=== PATIENT | male | born 1995 | race African-American/Black ===

== ENCOUNTER 2018-12-20 21:53 | Emergency (ER) | payer OTHER ==
[~2018-12-20] VITALS: Ht 175.3 cm; Wt 84.1 kg
[2018-12-21] MEDS ORDERED: NS 500 ML IV ONE (01:30)
[2018-12-21 01:54] VITALS: BP 118/72
== END 2018-12-21 02:10 | disposition home or self-care (01) ==
LOC: M ED 21:53
DX: K52.9 Noninfective gastroenteritis and colitis, unspecified (principal)

== ENCOUNTER 2020-05-15 14:48 | Inpatient (IN) | payer OTHER ==
[~2020-05-15] VITALS: Ht 177.8 cm; Wt 87.8 kg
[2020-05-15 15:33] LABS: BASO % 0.1 % (0.0-1.0); EOS # 0.2 10^3/uL (0.0-0.5); HEMATOCRIT 45.9 % (42.0-52.0); HEMOGLOBIN 15.2 g/dl (13.5-17.5); LYMPH # 1.7 10^3/uL (1.5-5.0); LYMPH % 23.6 % (24.0-44.0); MEAN CORPUSCULAR HEMOGLOBIN 28.1 pg (27.0-33.0); MEAN CORPUSCULAR HGB CONC 33.1 g/dl (32.0-36.5); MEAN CORPUSCULAR VOLUME 84.8 fl (80.0-96.0); MONO # 0.7 10^3/uL (0.0-0.8); MONO % 9.3 % (0.0-5.0); NEUTROPHILS # 4.7 10^3/uL (1.5-8.5); NEUTROPHILS % 64.6 % (36.0-66.0); PLATELET COUNT, AUTOMATED 284 10^3/uL (150-450); RED BLOOD COUNT 5.41 10^6/uL (4.30-6.10); WHITE BLOOD COUNT 7.3 10^3/uL (4.0-10.0)
[2020-05-15] MEDS ORDERED: ONDANSETRON 4MG/2ML VIAL IV ONE (16:00)
[2020-05-15] MEDS ORDERED: NS 1,000 ML IV ONE ×2 (16:00→19:00)
[2020-05-15 16:07] LABS: ALBUMIN 4.2 GM/DL (3.2-5.2); BILIRUBIN,DIRECT 0.2 MG/DL (0.0-0.2); BILIRUBIN,TOTAL 0.7 MG/DL (0.2-1.0)
[2020-05-15] MEDS: GASTROGRAFIN SOLUTION 30ML PO SCH ×2 (17:01→17:43)
[2020-05-15] MEDS ORDERED: ISOVUE-370 76% 100ML VIAL As Ordered ONE (17:40)
--- NOTE | 2020-05-15 19:09 | REPVR ---
PROCEDURE INFORMATION: Exam: CT Abdomen And Pelvis With Contrast Exam date and time: 05/15/2020 6:51 PM Age: 24 years old Clinical indication: Abdominal pain; Additional info: Abd pain with n/v/d and blood in vomit TECHNIQUE: Imaging protocol: Computed tomography of the abdomen and pelvis with intravenous contrast. Radiation optimization: All CT scans at this facility use at least one of these dose optimization techniques: automated exposure control; mA and/or kV adjustment per patient size (includes targeted exams where dose is matched to clinical indication); or iterative reconstruction. Contrast material: ISOVUE 370; Contrast volume: 100 ml; Contrast route: INTRAVENOUS (IV); Other contrast: Oral; COMPARISON: No relevant prior studies available. FINDINGS: Mediastinal space: Thickening of the wall of the distal esophagus. Clinical correlation to exclude reflux suggested. Liver: There is a diffuse decrease in hepatic parenchymal density, consistent with steatosis. Gallbladder and bile ducts: Normal. No calcified stones. No ductal dilation. Pancreas: Normal. No ductal dilation. Spleen: Normal. No splenomegaly. Adrenals: Normal. No mass. Kidneys and ureters: Normal. No hydronephrosis. Stomach and bowel: Boggy appearance of the left colon may be related to incomplete distention although colitis to be excluded clinically. Appendix: No evidence of appendicitis. Intraperitoneal space: Unremarkable. No free air. No significant fluid collection. Vasculature: Unremarkable. No abdominal aortic aneurysm. Lymph nodes: Unremarkable. No enlarged lymph nodes. Urinary bladder: Unremarkable as visualized. Reproductive: Unremarkable as visualized. Bones/joints: Unremarkable. No acute fracture. Soft tissues: Unremarkable. IMPRESSION: 1. There is a diffuse decrease in hepatic parenchymal density, consistent with steatosis. 2. Boggy appearance of the left colon may be related to incomplete distention although colitis to be excluded clinically. 3. Thickening of the wall of the distal esophagus. Clinical correlation to exclude reflux suggested. Electronically signed by: Bebo Mackey On 05/15/2020 19:09:06 PM
[2020-05-15 20:16] LABS: AMPHETAMINES LEVEL URINE NEGATIVE (NEGATIVE); BARBITURATES URINE NEGATIVE (NEGATIVE); BENZODIAZEPINES URINE NEGATIVE (NEGATIVE); CANNABINOIDS URINE POSITIVE (NEGATIVE); COCAINE METABOLITE URINE NEGATIVE (NEGATIVE); METHADONE URINE NEGATIVE (NEGATIVE); OPIATES URINE NEGATIVE (NEGATIVE); PHENCYCLIDINE URINE NEGATIVE (NEGATIVE)
[2020-05-15] MEDS ORDERED: ACETAMINOPHEN TAB 650MG DOSE (2X325MG) PO PRN (20:45)
[2020-05-15] MEDS ORDERED: ONDANSETRON 4MG/2ML VIAL IV PRN (20:45)
--- NOTE | 2020-05-15 20:51 | HPEPDOC ---
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 He states that last Thursday he had a strenuous 4 hour long workout followed by excessive binge drinking over the weekend. Yesterday evening he went to bed feeling well but this morning awoke to go to PT and felt nauseous. He then had several episodes of emesis (mostly appearing like the food he ate last night) and continued to dry heave until there was some bright red blood in his vomitus. He estimates only about 10cc blood. At the time of my exam he states he feels better and no longer nauseous or vomiting. He did have one episode of diarrhea this morning. He denies any recent illnesses, no fevers/chills/SOB or weight loss. PAST MEDICAL HISTORY: 1. Tobacco abuse 2. Binge drinker (EtOH) PAST SURGICAL HISTORY: [place] teeth removal SOCIAL HISTORY: [place], working in [employer]. Lives at [place]. Former heavy smoker, reports smoking 3-4 cigarettes daily Reports binge drinking heavy liquor + beer on weekends Denies any illicit drug use including (but tox screen positive for cannabinoids) Does strenuous workouts 3-4 times/week, denies use of preworkout or workout supplements FAMILY HISTORY: Gout, Heart disease unspecified, HTN, DM2 ALLERGIES: Please see below. REVIEW OF SYSTEMS: Constitutional: No Weight Change, No Fever, No Chills, No Night Sweats, No Fatigue, No Malaise ENT/Mouth: No Hearing Changes, No Ear Pain, No Nasal Congestion, No Sinus Pain, No Hoarseness, No sore throat, No Rhinorrhea, No Swallowing Difficulty Eyes: No Eye Pain, No Swelling, No Redness, No Foreign Body, No Discharge, No Vision Changes Cardiovascular: No Chest Pain, No SOB, No PND, No Dyspnea on Exertion, No Orthopnea, No Claudication, No Edema, No Palpitations Respiratory: No Cough, No Wheezing, No Smoke Exposure, No Dyspnea Gastrointestinal: Reports nausea, vomiting, hematemesis, abdominal pain worse in the right upper quadrant Genitourinary: No Dysmenorrhea, No DUB, No Dyspareunia, No Dysuria Musculoskeletal: No Arthralgias, No Myalgias, No Joint Swelling, No Joint Stiffness, No Back Pain, No Neck Pain, No Injury History Skin: No Skin Lesions, No Pruritis, No Hair Changes, No Breast/Skin Changes, No Nipple Discharge Neuro: No Weakness, No Numbness, No Paresthesias, No Loss of Consciousness, No Syncope, No Dizziness, No Headache, No Coordination Changes, No Recent Falls Psych: No Anxiety/Panic, No Depression, No Insomnia, No Personality Changes, No Delusions Heme/Lymph: No Bruising, No Bleeding, No Transfusions History, No Lymphadenopathy Endocrine: No Polyuria, No Polydipsia, No Temperature Intolerance HOME MEDICATIONS: Please see below. VITAL SIGNS: see below GENERAL: alert and oriented, in no apparent distress, pleasant and conversant in full sentences. HEENT: PERRL, EOMI, Oral mucous membranes are moist without lesions. NECK: The patient has no noted JVD. No adenopathy is appreciated. No thyromegaly CHEST/LUNGS: Lungs are clear bilaterally without rhonchi, rales, or wheezes. There is no subcutaneous air appreciated. There is no tenderness to the chest wall. HEART:Regular rate and rhythm. No murmurs, rubs, or gallops are appreciated. Distal pulses are 2+. No carotid bruits appreciated. ABDOMEN: Soft, nondistended, slightly tender to palpation in the right upper quadrant. Liver appears normal size. Bowel sounds are positive. No organomegaly is appreciated. No masses are appreciated. There are no peritoneal signs. There is no [place] sign. EXTREMITIES: No peripheral edema. There is no focal long bone tenderness or deformity. SKIN: The patients skin is warm and dry, without rashes or lesions. PSYCHIATRIC: AAO x 3, normal mood/affect NEUROLOGIC: The patient has 5/5 strength to the upper and lower extremities bilaterally. Sensation is intact throughout. Deep tendon reflexes are 2+ in all four extremities. There are no deficits to the cranial nerves. LABORATORY DATA: See below. IMAGING: CT A/P with contrast: IMPRESSION: 1. There is a diffuse decrease in hepatic parenchymal density, consistent with steatosis. 2. Boggy appearance of the left colon may be related to incomplete distention although colitis to be excluded clinically. 3. Thickening of the wall of the distal esophagus. Clinical correlation to exclude reflux suggested. MICROBIOLOGY: Please see below. 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 PLAN: 1. Elevated CK concerning for rhabdomyolysis: The patient has a history of recent strenuous workouts -CK found to be 30,350 -We will begin aggressive fluid hydration IV NS 200 mL per hour -Will trend CPK Q6H -No evidence of renal dysfunction at this time. BUN/CR normal. -UA positive for RBC -No obvious illicit drug use other than cannabinoids. Patient denies use of preworkout supplementation 2. Transaminitis: ddx acute alcoholic hepatitis vs viral hepatitis (although less likely given lack of infectious symptoms) -CT abd/pelvis concerning for acute fatty liver. -Patient does report recent heavy EtOH binge drinking -Ordered hepatitis panel -Will trend AST/ALT 3. Reported hematemesis: -Most likely 2/2 to esophageal tear (Boerhaave syndrome) from excessive straining from vomiting -CT abd/pelvis demonstrates thickened distal esophagus concerning for reflux -Patient will benefit from outpatient follow up regarding this matter -H/H stable and patient denies any recent bloody emesis in past several hours. DVT ppx: TEDs/SCDs Vital Signs Vital Signs Date Time Temp Pulse Resp B/P (MAP) Pulse Ox O2 Delivery O2 Flow Rate FiO2 05/15/20 16:03 05/15/20 14:48 98.6 64 17 98 Room Air Laboratory Data Labs 24H Laboratory Tests 2 05/15/20 15:18: Immature Granulocyte % (Auto) 0.4, Neutrophils (%) (Auto) 64.6, Lymphocytes (%) (Auto) 23.6L, Monocytes (%) (Auto) 9.3H, Eosinophils (%) (Auto) 2.0, Basophils (%) (Auto) 0.1, Neutrophils # (Auto) 4.7, Lymphocytes # (Auto) 1.7, Monocytes # (Auto) 0.7, Eosinophils # (Auto) 0.2, Basophils # (Auto) 0.0, Nucleated Red Blood Cells % (auto) 0.0, Total Bilirubin 0.7, Direct Bilirubin 0.2, Aspartate Amino Transf (AST/SGOT) 449H, Alanine Aminotransferase (ALT/SGPT) 162H, Alkaline Phosphatase 74, Total Creatine Kinase 30352D, Total Protein 8.0, Albumin 4.2, Albumin/Globulin Ratio 1.1, Lipase 76 05/15/20 15:53: POC Glucose (Misc Panel) 92, POC Sodium (Misc Panel) 141, POC Potassium (Misc Panel) 3.7, POC Chloride (Misc Panel) 100, POC Total CO2 (Misc Panel) 25.0, POC Blood Urea Nitrogen (Misc Panel 12, POC Ionized Calcium (Misc Panel) 4.9, POC Creatinine (Misc Panel) 0.9, POC Hematocrit (Misc Panel) 48.0 05/15/20 16:12: Urine Color YELLOW, Urine Appearance TURBIDH, Urine pH 7.0, Urine Specific [place] 1.026, Urine Protein 1+H, Urine Glucose (UA) NEGATIVE, Urine Ketones NEGATIVE, Urine Blood 1+H, Urine Nitrite NEGATIVE, Urine Bilirubin NEGATIVE, Urine Urobilinogen 2.0H, Urine Leukocyte Esterase 2+H, Urine WBC (Auto) 35H, Urine RBC (Auto) 30H, Urine Hyaline Casts (Auto) 0, Urine Bacteria (Auto) NEGATIVE, Urine Squamous Epithelial Cells 4, Urine Amorphous Sediment LARGEH, Urine Mucus (Auto) SMALL, Urine Sperm (Auto) 05/15/20 19:36: Urine Opiates Screen NEGATIVE, Urine Methadone Screen NEGATIVE, Urine Barbiturates Screen NEGATIVE, Urine Phencyclidine Screen NEGATIVE, Urine Amphetamines Screen NEGATIVE, Urine Benzodiazepines Screen NEGATIVE, Urine Cocaine Metabolite Screen NEGATIVE, Urine Cannabinoids Screen POSITIVEH CBC/BMP Laboratory Tests 05/15/20 15:18 Microbiology Microbiology 05/15/20 Urine Culture, Received Pending Home Medications No Active Prescriptions or Reported Meds Allergies Coded Allergies: No Known Allergies (Unverified , 12/20/18) A-FIB/CHADSVASC A-FIB History Current/History of A-Fib/PAF?: No GME ATTESTATION GME ATTESTATION My faculty preceptor for this patient encounter was physically present during the encounter and was fully available. All aspects of the patient interview, examination, medical decision making process, and medical care plan development were reviewed and approved by the faculty preceptor. The faculty preceptor is aware and concurs with the plan as stated in the body of this note and will attest to such by his/her cosignature. GARRISON GARCIA MD May 15, 2020 20:51
[2020-05-15 22:00] VITALS: BP 133/75
[2020-05-15] MEDS: NS 1,000 ML IV SCH (22:05)
[2020-05-16] MEDS: NS 1,000 ML IV SCH ×5 (03:29→23:20)
[2020-05-16 04:09] LABS: HEMATOCRIT 39.4 % (42.0-52.0); MEAN CORPUSCULAR HGB CONC 32.7 g/dl (32.0-36.5); MEAN CORPUSCULAR VOLUME 85.5 fl (80.0-96.0); PLATELET COUNT, AUTOMATED 239 10^3/uL (150-450); RED BLOOD COUNT 4.61 10^6/uL (4.30-6.10); WHITE BLOOD COUNT 5.6 10^3/uL (4.0-10.0)
[2020-05-16 04:14] LABS: HEMOGLOBIN 12.9 g/dl (13.5-17.5)
[2020-05-16 05:11] LABS: BLOOD UREA NITROGEN 10 MG/DL (7-18); CALCIUM LEVEL 8.1 MG/DL (8.5-10.1); CARBON DIOXIDE LEVEL 29 MEQ/L (21-32); CHLORIDE LEVEL 110 MEQ/L (98-107); CPK CREATINE PHOSPHOKINASE 26928 U/L (39-308); CREATININE FOR GFR 0.92 MG/DL (0.70-1.30); GLOMERULAR FILTRATION RATE > 60.0 (>60); GLUCOSE, FASTING 86 MG/DL (70-100); POTASSIUM SERUM 3.7 MEQ/L (3.5-5.1); SODIUM LEVEL 141 MEQ/L (136-145)
[2020-05-16 06:00] VITALS: BP 102/66
[2020-05-16] MEDS ORDERED: ACETAMINOPHEN 500 MG TAB PO PRN (09:15)
[2020-05-16] MEDS ORDERED: oxyCODONE 5MG TAB PO PRN (09:15)
[2020-05-16] MEDS ORDERED: PRIL20TA2 PO (12:22)
[2020-05-16 14:00] VITALS: BP 126/72
[2020-05-16 14:11] LABS: HEPATITIS A ANTIBODY IGM NEGATIVE (NEGATIVE); HEPATITIS B CORE ANTIBODY IGM NEGATIVE (NEGATIVE); HEPATITIS B SURFACE ANTIGEN NEGATIVE (NEGATIVE); HEPATITIS C VIRUS ABY INDEX 0.2 INDEX (<0.8)
[2020-05-16 22:00] VITALS: BP 123/69
[2020-05-17] MEDS: NS 1,000 ML IV SCH ×2 (04:14→09:51)
[2020-05-17 06:00] VITALS: BP 104/56
[2020-05-17 06:49] LABS: BLOOD UREA NITROGEN 10 MG/DL (7-18); CALCIUM LEVEL 8.5 MG/DL (8.5-10.1); CARBON DIOXIDE LEVEL 27 MEQ/L (21-32); CHLORIDE LEVEL 111 MEQ/L (98-107); CPK CREATINE PHOSPHOKINASE 12069 U/L (39-308); CREATININE FOR GFR 0.91 MG/DL (0.70-1.30); GLOMERULAR FILTRATION RATE > 60.0 (>60); GLUCOSE, FASTING 92 MG/DL (70-100); POTASSIUM SERUM 3.9 MEQ/L (3.5-5.1); SODIUM LEVEL 142 MEQ/L (136-145)
[2020-05-17] MEDS ORDERED: NS 1,000 ML IV ONE ×2 (10:00→11:00)
[2020-05-17 14:00] VITALS: BP 130/69
--- NOTE | 2020-05-17 15:38 | DSES ---
DATE OF ADMISSION: 05/15/2020 DATE OF DISCHARGE: PRIMARY DISCHARGE DIAGNOSES: 1. Acute rhabdomyolysis. 2. History of tobacco abuse. 3. History of alcohol abuse with liver steatosis. DISCHARGE MEDICATIONS: Prilosec 20 mg daily. DISCHARGE INSTRUCTIONS: Avoid physical training for two days; may resume normal activity on May 19, 2020. Patient is to avoid non-steroidal anti- inflammatories, ibuprofen, Naprosyn, Aleve and to encourage 2-3 liters of fluid intake daily. HOSPITAL COURSE: This is 24-year-old male, active duty from [place] presented with several hours of nausea, vomiting and emesis after alcoholic binge over the weekend. The patient was found to have acute rhabdomyolysis. CT abdomen and pelvis showed possible reflux and nonspecific incomplete distention of the left colon. The patient was admitted and was noted to have a total CK of 40,537; hydrated with normal saline 200 mL/hr with improvement to 26,928. Renal function was normal with a creatinine of 0.92 and GFR of greater than 60. Patient tolerated his diet well without nausea or vomiting; no recurrent episodes of emesis. Patient was given antiemetics and was discharged in stable condition. PHYSICAL EXAM ON DISCHARGE: Temperature 98.2, pulse 64, respiratory rate 18, blood pressure 102/66, 97% on room air. In general, awake, alert, oriented times 3. Anicteric sclerae; no jaundice. No JVD, no thyromegaly. Lungs are clear to auscultation. No wheezing, rales, or rhonchi. Heart: S1, S2; sinus rhythm. Abdomen is soft, nontender, nondistended. Positive bowel sounds. Extremities: No cyanosis, clubbing, or pitting edema. LABORATORY DATA ON DISCHARGE: White count 5.6, hemoglobin 12, hematocrit 39, platelet count 239. Sodium 141, potassium 3.7, chloride 110, bicarb 29, BUN 10, creatinine 0.92, glucose of 86. Microbiology: Urine culture Corynebacterium. IMAGING STUDIES: 05/15/2020: Diffuse decrease in hepatic parenchymal density consistent with steatosis; boggy appearance of the left colon related to incomplete distention; thickening of the wall of the distal esophagus, exclude reflux. Time spent on discharge: 30 minutes. [facility]
--- NOTE | 2020-05-18 10:50 | IPN ---
DATE: 05/17/2020 SUBJECTIVE: Patient seen and examined at the bedside. Chart has been reviewed. Despite intravenous (IV) fluid, patient denies any shortness of breath. He denies any muscle aches. States that his urine is clear in color, not concentrated yellow or dark orange. Patient has been urinating all night long. No muscle aches or joint pain. OBJECTIVE: PHYSICAL EXAMINATION: VITAL SIGNS: Temperature 98.4, pulse 65, respiratory rate 16, blood pressure 104/56, 96% on room air. GENERAL: Patient is awake, alert, oriented to person, place, and time. Anicteric sclerae. No jaundice. No icterus. No use of respiratory accessory muscles. Pupils round and reactive to light and accommodation. Extraocular muscles are intact. Neck is supple. Full range of motion. No jugular venous distention (JVD), cervical lymphadenopathy, or thyromegaly. LUNGS: Clear to auscultation. No wheezing, rales, or rhonchi. No adventitious breath sounds. Air entry is equal bilaterally. HEART: S1, S2, sinus rhythm. Nondisplaced point of maximal impulse. No murmurs, rubs, gallops. ABDOMEN: Soft, nontender, nondistended. Positive bowel sounds. EXTREMITIES: No cyanosis, clubbing, or pitting edema. LABORATORY DATA: May 16 CBC has been reviewed. Sodium 142, potassium 3.9, chloride 111, bicarbonate 27, BUN 10, creatinine 0.9, glucose 92. Total CK 12,069. Previous peak CK is 40,537. Urine culture: Corynebacterium, mostly contaminated. IMAGING STUDIES: May 15 CT abdomen and pelvis: Diffuse decrease in the hepatic parenchymal density, consistent with steatosis. Incomplete distention of the left colon, although colitis to be excluded clinically. Thickening of the wall of the distal esophagus. Exclude reflux. 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 Patient had been drinking alcohol and was found to have liver steatosis ACTIVE ISSUES: 1. Acute rhabdomyolysis. Patient has been given intravenous (IV) fluids at 200 mL per hour with decrease in total CK from 40,000 to 12,000 today. He is tolerating his diet well, able to drink 2-3 liters of liquids daily. Patient denies any muscle aches. Creatinine is normal. He may be discharged home with total CK of less than 10,000 today. 2. Liver steatosis, mostly likely secondary to alcohol abuse. Patient says that he has been drinking alcohol due to insomnia. "I use it to make me sleep," but has tried to cut back at home. He will benefit from abstaining from alcohol in the future. Hepatitis serology was negative. 3. Alcohol abuse. No signs of withdrawal at this time. 4. Questionable reflux. Trial of proton pump inhibitor (PPI) as outpatient. Possible alcoholic gastritis. DISPOSITION Patient may be discharged home today. Abstain from alcohol and no physical training for 2-3 days. Encourage fluid intake of 2-3 liters daily. Followup with his primary care physician within 5 days of hospital discharge. MIN
== END 2020-05-17 14:40 | disposition home or self-care (01) | DRG 558 ==
LOC: M ED 14:48 → M ED INP 14:49 → ENRESERV 22:33 → M MS5PR 23:35 → OBSVTOIN 05-16 09:10
PROVIDERS: ADMIT Internal Medicine; ATTEND General Practice
DX: M62.82 Rhabdomyolysis (principal); K92.0 Hematemesis; F10.10 Alcohol abuse, uncomplicated; F17.210 Nicotine dependence, cigarettes, uncomplicated; K76.0 Fatty (change of) liver, not elsewhere classified

== ENCOUNTER 2022-09-06 19:41 | Emergency (ER) | payer OTHER ==
[~2022-09-06] VITALS: Ht 177.8 cm; Wt 87.3 kg
[~2022-09-06 19:41] MED LIST: PRIL20TA2 PO
[2022-09-06 19:42] VITALS: BP 132/79
== END 2022-09-06 22:05 | disposition left against medical advice (07) ==
LOC: M ED 19:41
DX: Z53.21 Procedure and treatment not carried out due to patient leaving prior to being seen by health care provider (principal)